=== PATIENT | female | born 1970 | race Caucasian/White ===

== ENCOUNTER 2016-11-18 16:08 | Emergency (ER) | payer BC ==
[~2016-11-18] VITALS: Ht 165.1 cm; Wt 53.6 kg
--- OUTSIDE RECORDS SUMMARY | 2016-11-18 16:11 | XMS REPORT | Continuity of Care Document ---
Author Author [facility] Address Unknown Phone Unavailable Allergies Medications Problems Date Dx Coded Attending Type Code Diagnosis Diagnosed By 02/04/2015 Ot 786.2 02/04/2015 Yessenia PATEL, James Jaramillo Ot 493.20 03/12/2015 Yessenia PATEL, James O Ot 493.20 03/30/2015 Samir PATEL, Jose Cruz Liu Ot 729.5 04/09/2015 Samir PATEL, Jose Cruz Liu Ot 719.47 04/09/2015 Samir PATEL, Jose Cruz Liu Ot 729.81 04/30/2015 Samir PATEL, Jose Cruz Liu Ot 729.5 04/30/2015 Samir PATEL, Jose Cruz Liu Ot 782.3 05/01/2015 Samir PATEL, Jose Cruz Liu Ot 729.5 05/06/2015 Samir PATEL, Jose Cruz Liu Ot 729.5 05/06/2015 Samir PATEL, Jose Cruz Liu Ot 729.5 09/17/2015 Ot 786.2 09/17/2015 Yessenia PATEL, James O Ot 493.20 09/17/2015 Yessenia PATEL, James O Ot 493.20 09/17/2015 Samir PATEL, Jose Cruz Liu Ot 729.5 09/17/2015 Samir PATEL, Jose Cruz Liu Ot 719.47 09/17/2015 Samir PATEL, Jose Cruz Liu Ot 729.81 09/17/2015 Samir PATEL, Jose Cruz Liu Ot 729.5 09/17/2015 Samir PATEL, Jose Cruz Liu Ot 782.3 09/17/2015 Samir PATEL, Jose Cruz Liu Ot 729.5 10/08/2015 Ot 786.2 10/08/2015 Ysesenia PATEL, James O Ot 493.20 10/08/2015 Yessenia PATLE, James Jaramillo Ot 493.20 10/08/2015 Samir PATEL, Jose Cruz Liu Ot 729.5 10/08/2015 Samir PATEL, Jose Cruz Liu Ot 719.47 10/08/2015 Samir PATEL, Jose Cruz Liu Ot 729.81 10/08/2015 Samir PATEL, Jose Cruz Alexa Ot 729.5 10/08/2015 Samir PATEL, Jose Cruz Liu Ot 782.3 10/08/2015 Samir PATEL, Jose Cruz Liu Ot 729.5 10/21/2015 Samir PATEL, Jose Cruz Liu Ot R06.02 Procedures Results Encounters ACCT No. Visit Date/Time Discharge Status Pt. Type Provider Facility Loc./Unit Complaint [id number] 04/20/2015 14:48:00 2014 23:59:59 CLS Outpatient Samir PATEL, [facility] RAD [id number] 04/14/2015 12:25:00 2014 23:59:59 CLS Outpatient Samir PATEL, [facility] RAD [id number] 03/27/2015 08:37:00 2014 23:59:59 CLS Outpatient Samir PATEL, [facility] RAD [id number] 03/13/2015 10:44:00 2014 23:59:59 CLS Outpatient Samir PATEL, [facility] RAD [id number] 02/04/2015 13:29:00 2014 23:59:59 CLS Outpatient Yessenia PATEL, [facility] RT [id number] 09/26/2013 10:02:00 2013 23:59:59 CLS Outpatient Yessenia PATEL, [facility] RT [id number] 10/15/2015 13:28:00 ACT Outpatient Samir PATEL, [facility] RAD [id number] 06/28/2012 13:29:00 Document Registration
--- OUTSIDE RECORDS SUMMARY | 2016-11-18 16:12 | XMS REPORT | Continuity of Care Document ---
Author Author [facility] Address Unknown Phone Unavailable Allergies Medications Problems [...] Liu Ot 729.5 10/08/2015 Ot 786.2 10/08/2015 Yessenia PATEL, aJmes O Ot 493.20 10/08/2015 Yessenia PATEL, James Jaramillo Ot 493.20 10/08/2015 Samir PATEL, [...] Status Pt. Type Provider Facility Loc./Unit Complaint [id number] 04/20/2015 14:48:00 2014 23:59:59 CLS Outpatient Samir PATEL, [facility] RAD [id number] 04/14/2015 12:25:00 2014 23:59:59 CLS Outpatient Samir PATEL, [facility] RAD [id number] 03/27/2015 08:37:00 2014 23:59:59 CLS Outpatient Samir PATEL, [facility] RAD [id number] 03/13/2015 10:44:00 2014 23:59:59 CLS Outpatient Samir PATEL, [facility] RAD [id number] 02/04/2015 13:29:00 2014 23:59:59 CLS Outpatient Yessenia PATEL, [facility] RT [id number] 09/26/2013 10:02:00 2013 23:59:59 CLS Outpatient Yessenia PATEL, [facility] RT [id number] 10/15/2015 13:28:00 ACT Outpatient Samir PATEL, [facility] RAD [id number] 06/28/2012 13:29:00 Document Registration
[2016-11-18] MEDS ORDERED: ONDANSETRON 2 MG/ML (Z0FRAN) 2 ML VIAL IV STA (16:21)
[2016-11-18] MEDS ORDERED: LORazepam 2 MG/ML (ATIVAN) 1 ML VIAL IV STA (16:21)
[2016-11-18] MEDS ORDERED: fentaNYL 100 MCG/2 ML VIAL IV STA ×3 (16:21→19:15)
--- NOTE | 2016-11-18 17:33 | Diagnostic Imaging Report ---
PROCEDURE: CT lumbar spine without contrast. TECHNIQUE: Multiple contiguous axial images were obtained through the lumbar spine without the use of intravenous contrast. Sagittal and coronal reformations were then performed. INDICATION: Back pain after lifting bunk bed. FINDINGS: There is superior endplate compression fracture of L1 vertebral body anteriorly. There is minimal depression of the superior endplate. There is no evidence of posterior pulsion of the vertebral body into the canal. The remaining lumbar vertebral bodies appear normal. The facets are in good alignment with no significant degenerative change. There is no spinal stenosis. No paraspinal masses. IMPRESSION: 1. There is a superior endplate fracture of L1 anteriorly with minimal compression. Remaining of the lumbar spine appears normal. Dictated by: Dictated on workstation # [id number]
--- NOTE | 2016-11-18 18:14 | NUR ---
[facility] [employer]TH[facility] MOTOR AND CHASSIS INSPECTOR (DR FAY) CALLED RE PT & TALKS W/DR JALLOH. CL
[2016-11-18] MEDS ORDERED: OXYC1TAB87 PO (19:11)
[2016-11-18] MEDS ORDERED: PRM25T PO (19:11)
[2016-11-18 19:35] VITALS: BP 99/36
[2016-11-18] MEDS ORDERED: TIOT18CA INH (21:24)
[2016-11-18] MEDS ORDERED: ESTR1GEL TOP (21:24)
[2016-11-18] MEDS ORDERED: BUDE10.2 INH (21:24)
== END 2016-11-18 19:37 | disposition home or self-care (01) ==
LOC: ED 16:08
DX: S32.018A Other fracture of first lumbar vertebra, initial encounter for closed fracture (principal); X50.0XXA Overexertion from strenuous movement or load, initial encounter; X50.9XXA Other and unspecified overexertion or strenuous movements or postures, initial encounter; Y93.89 Activity, other specified
CPT/HCPCS: 72131; 96374; 96375; 96376; 99283; J2060; J2405; J3010; 99284

== ENCOUNTER → 2016-11-18 | Outpatient (CLI) | payer BC ==
[~2016-11-18] MED LIST: BUDE10.2 INH; ESTR1GEL TOP; OXYC1TAB87 PO; PRM25T PO; TIOT18CA INH
== END ==
LOC: EMS 16:05
PROVIDERS: ATTEND Emergency Medicine
DX: M54.5 Low back pain (principal)